=== PATIENT | female | born 1955 | race Hispanic/Latino ===

== ENCOUNTER → 2022-05-09 | Outpatient (CLI) | payer MEDICARE | END | disposition home or self-care (01) | LOC: RAH 11:12 | PROVIDERS: ATTEND Orthopaedic Surgery | DX: M75.101 Unspecified rotator cuff tear or rupture of right shoulder, not specified as traumatic (principal) | CPT/HCPCS: 73221 ==

== ENCOUNTER 2022-06-24 06:03 | Day surgery (SDC) | payer MEDICARE ==
[2022-06-23 12:58] LABS: BASOPHILS % (AUTO) 0.9 % (0.0-5.0); EOSINOPHILS % (AUTO) 7.1 % (0.0-8.0); HEMATOCRIT 39.4 % (36-48); LYMPHOCYTES % (AUTO) 21.4 % (21.0-51.0); MEAN CORPUSCULAR HEMOGLOBIN 28.6 pg (27.0-33.0); MEAN CORPUSCULAR HGB CONC 31.5 g/dL (32.0-36.0); MONOCYTES % (AUTO) 8.7 % (3.0-13.0); NEUTROPHILS % (AUTO) 61.4 % (40.0-77.0); PLATELET COUNT (AUTO) 246 K/uL (130-400); RED BLOOD CELL COUNT(AUTO) 4.33 MIL/uL (4.00-5.50); WHITE BLOOD COUNT (AUTO) 9.4 K/uL (4.8-10.8)
[2022-06-23 13:06] LABS: ALBUMIN 3.8 g/dL (3.5-5.0); CARBON DIOXIDE 27 mmol/L (21-32); CHLORIDE 104 mmol/L (101-111); CREATININE 0.8 mg/dL (0.5-1.5); CRP QUANTITATIVE < 2.00 mg/L (0.00-9.0); GLOMERULAR FILTR. RATE CALC 76 mL/min (>60); GLUCOSE,RANDOM 144 mg/dL (70-105); SODIUM SERUM 140 mmol/L (136-145); UREA NITROGEN, BLOOD 15 mg/dL (7-18)
[2022-06-23 13:27] VITALS: BP 128/61
[~2022-06-24] VITALS: Ht 158.8 cm; Wt 92.1 kg
[2022-06-24] VITALS (18 sets, daily range): BP systolic 113–159; BP diastolic 43–79
[~2022-06-24 06:03] MED LIST: ASPI-1443 PO; CARV6.25 PO; DILT120T PO; DRISDOL PO; EMPA25TA PO; GABA300C PO; LOSA100T58 PO; MELO-106 PO; PHEN-615 PO; ROSU40TA21 PO; VENL150T3 PO; [UNRECOGNIZED DRUG - OTHER] INJ
[2022-06-24] MEDS: CEFAZOLIN SODIUM 1 GM VIAL IVP SCH ×2 (06:40→08:30)
[2022-06-24] MEDS ORDERED: 0.9%NACL 1000ML 1,000 ML IV ONE (06:45)
[2022-06-24] MEDS ORDERED: EPINEPHRINE PF 1MG (1:1,000) 1 MG/ML AMP ONE (07:11)
[2022-06-24] MEDS ORDERED: SUCCINYLCHOLINE CHLORIDE 20 MG/ML 10 ML VIAL ONE (07:15)
[2022-06-24] MEDS ORDERED: DEXAMETHASONE SOD PHOSPHATE 10MG/ML 1ML VIAL ONE (07:15)
[2022-06-24] MEDS ORDERED: ONDANSETRON 4MG INJ ONE ×2 (07:15→11:10)
[2022-06-24] MEDS ORDERED: SUCCINYLCHOLINE 200MG/10ML SYR ONE (07:15)
[2022-06-24] MEDS ORDERED: NEOSTIGMINE 5MG/5ML SYR IV ONE (07:16)
[2022-06-24] MEDS ORDERED: PROPOFOL 10 MG/ML 20ML VIAL IV ONE (07:16)
[2022-06-24] MEDS ORDERED: ROCURONIUM 10MG/1ML SYR 10 MG/ML ML ONE (07:16)
[2022-06-24] MEDS ORDERED: MIDAZOLAM HCL 1 MG/ML 2ML VIAL ONE (07:16)
[2022-06-24] MEDS ORDERED: FENTANYL CITRATE PF 50 MCG/1 ML 2ML VIAL ONE ×2 (07:16→11:32)
[2022-06-24] MEDS ORDERED: GLYCOPYRROLATE 1 MG/5 ML SYRINGE ONE (07:16)
[2022-06-24] MEDS ORDERED: ROPIVACAINE 0.5% 5MG/ML 30ML IJ ONE (07:19)
[2022-06-24] MEDS ORDERED: LIDOCAINE HCL MDV 0.5% 50ML VIAL IJ ONE (07:19)
[2022-06-24] MEDS ORDERED: PHENYLEPHRINE HCL 10 MG/ML 1ML VIAL IV ONE (07:24)
[2022-06-24] MEDS ORDERED: HYDR-4060 PO (10:29)
[2022-06-24] MEDS ORDERED: MEPERIDINE-PF 25 MG/ML SYG ONE ×2 (10:41→11:11)
[2022-06-24] MEDS ORDERED: KETOROLAC 15MG/ML VIAL (15MG/ML) ONE (11:11)
== END 2022-06-24 13:05 | disposition home or self-care (01) ==
LOC: DAH 06:03
PROVIDERS: ATTEND Student in an Organized Health Care Education/Training Program
DX: M75.121 Complete rotator cuff tear or rupture of right shoulder, not specified as traumatic (principal); M19.011 Primary osteoarthritis, right shoulder; M75.41 Impingement syndrome of right shoulder; G89.29 Other chronic pain; I25.10 Atherosclerotic heart disease of native coronary artery without angina pectoris; E11.9 Type 2 diabetes mellitus without complications; Z79.82 Long term (current) use of aspirin; Z79.01 Long term (current) use of anticoagulants; Z98.51 Tubal ligation status; Z98.890 Other specified postprocedural states; Z90.49 Acquired absence of other specified parts of digestive tract; Z79.899 Other long term (current) drug therapy; Z98.49 Cataract extraction status, unspecified eye
CPT/HCPCS: 82040; 80048; 85025; 84134; 86140; 87426; 36415; 93005; 64415; 23412; 82948 ×2; 76942; A4663; J7030 ×2; J3010 ×2; J0690; J0330 ×2; J3490 ×2; J1100; J2710; J0171; J2250; J2704; J2405 ×2; J2175 ×2; J2795; J1885; J2370; A6204; G0168; A4649 ×2; A4930; C1713; A5120; A4215; A4223; A4222; A4221; A4600

== ENCOUNTER → 2024-07-01 | Outpatient (CLI) | payer MEDICARE ==
[~2024-07-01] MED LIST changes: +HYDR-4060 PO; -LOSA100T58 PO; +LOSA100T59 PO; -ROSU40TA21 PO; +ROSU40TA88 PO
== END | disposition home or self-care (01) ==
LOC: SHCH 08:49
PROVIDERS: ATTEND Internal Medicine Cardiovascular Disease
DX: I71.43 Infrarenal abdominal aortic aneurysm, without rupture (principal); I70.203 Unspecified atherosclerosis of native arteries of extremities, bilateral legs
CPT/HCPCS: 93978